=== PATIENT | female | born 1975 | race Hispanic/Latino ===

== ENCOUNTER → 2018-12-15 | Day surgery (SDC) | payer MEDICAID ==
[~2018-12-15] VITALS: Ht 160 cm; Wt 87.5 kg
[~2018-12-15] MED LIST: SODIUM CHLORIDE 0.9% 1000ML 1,000 ML IV ONE
[2018-12-15 13:40] VITALS: BP 107/71
[2018-12-15 14:04] LABS: INR 0.89 (0.85-1.15); PARTIAL THROMBOPLASTIN TIME 18.7 SEC (26.3-35.5); PROTHROMBIN TIME 9.4 SEC (9.6-11.6)
== END ==
LOC: DAH 13:03
PROVIDERS: ATTEND Internal Medicine Hematology & Oncology
DX: Z01.818 Encounter for other preprocedural examination (principal); T82.41XA Breakdown (mechanical) of vascular dialysis catheter, initial encounter; C77.3 Secondary and unspecified malignant neoplasm of axilla and upper limb lymph nodes; C50.411 Malignant neoplasm of upper-outer quadrant of right female breast; K29.70 Gastritis, unspecified, without bleeding; I73.9 Peripheral vascular disease, unspecified; I83.90 Asymptomatic varicose veins of unspecified lower extremity; F32.9 Major depressive disorder, single episode, unspecified; F41.9 Anxiety disorder, unspecified; D70.1 Agranulocytosis secondary to cancer chemotherapy; N39.0 Urinary tract infection, site not specified; J20.9 Acute bronchitis, unspecified; Z79.899 Other long term (current) drug therapy
CPT/HCPCS: 36415; 85610; 85730; A4606; J7030

== ENCOUNTER 2018-12-20 09:59 | Day surgery (SDC) | payer MEDICAID ==
[~2018-12-20] VITALS: Ht 157.5 cm; Wt 87.2 kg
[2018-12-20 10:15] VITALS: BP 110/67
--- NOTE | 2018-12-20 11:03 | NUR ---
NEW PT LEFT CHEST PERRY CATHETER IN PLACE WITH DRESSING DRY AND INTACT,
[2018-12-20] MEDS ORDERED: LIDOCAINE HCL 1% MDV 50ML VIAL ONE (11:33)
[2018-12-20] MEDS ORDERED: IOHEXOL-350 50ML VIAL IV ONE (11:37)
[2018-12-20] MEDS ORDERED: MIDAZOLAM HCL 1 MG/ML 2ML VIAL ONE (11:50)
[2018-12-20] MEDS ORDERED: FENTANYL CITRATE PF 50 MCG/1 ML 2ML VIAL ONE (11:50)
[2018-12-20 12:30] VITALS: BP 129/63
--- NOTE | 2018-12-20 12:30 | NUR ---
PROCEDURE RECEIVED PT FROM [employer] WORKER, S/P EVALUATION OF PERRY CATHETER , OLD PERRY CATHETER REMOVED AND NEW PERRY CATHETER PLACE. LEFT CHEST AREA DRESSING DRY AND INTACT, SITE ASYMPTOMATIC, VS STABLE. PT AWAKE AND ALERT,
[2018-12-20 12:45] VITALS: BP 122/63
[2018-12-20 13:00] VITALS: BP 120/63
[2018-12-20 13:15] VITALS: BP 112/69
[2018-12-20 13:30] VITALS: BP 117/71
--- NOTE | 2018-12-20 13:50 | NUR ---
DC DC INSTRUCTIONS GIVEN TO PT/ PT SPOUSE, INSTRUCTED IN DETAILED ABOUT INFECTION CONTROL. AND TO KEEP HOB AT 45 HOURS FOR 4 HRS PER MD ORDERS. TO F/U WITH DR. WOODS TOMORROW PT ALREADY HAD CHEMOTHERAPY APPOINTMENT . PT DENIES ANY PAIN OR DISCOMFORTS. LEFT CHEST AREA DRESSING DRY AND INTACT, NO HEMATOMA, BLEEDING, NOTED. PIV REMOVED, CATHETER INTACT, SITE ASYMTOMATIC. PT GETTING DRESS THEN WILL BE DC HOME
[2018-12-20] MEDS ORDERED: LABETALOL HCL 5 MG/ML 20ML VIAL IV ONE (14:03)
[2018-12-20] MEDS ORDERED: HYDRALAZINE HCL 20 MG/ML VIAL ONE (14:03)
== END 2018-12-20 14:00 | disposition home or self-care (01) ==
LOC: DAH 09:59 → CLH 09:59
PROVIDERS: ATTEND Internal Medicine Hematology & Oncology
DX: T82.49XA Other complication of vascular dialysis catheter, initial encounter (principal); C50.919 Malignant neoplasm of unspecified site of unspecified female breast; Y83.8 Other surgical procedures as the cause of abnormal reaction of the patient, or of later complication, without mention of misadventure at the time of the procedure; F32.9 Major depressive disorder, single episode, unspecified; F41.9 Anxiety disorder, unspecified; Z90.49 Acquired absence of other specified parts of digestive tract; Z98.890 Other specified postprocedural states; Z79.899 Other long term (current) drug therapy; Z84.89 Family history of other specified conditions
CPT/HCPCS: 36415; 36581; 77001; 84703; C1751; C1769; J0360; J1644 ×2; J2250; J3010; J3490 ×2; 99156; 99157; Q9967

== ENCOUNTER → 2019-05-08 | Outpatient (CLI) | payer MEDICAID | END | disposition home or self-care (01) | LOC: RAH 08:08 | PROVIDERS: ATTEND Internal Medicine Hematology & Oncology | DX: K76.0 Fatty (change of) liver, not elsewhere classified (principal); Z90.49 Acquired absence of other specified parts of digestive tract | CPT/HCPCS: 76700 ==